=== PATIENT | female | born 1980 | race Two or more races ===

== ENCOUNTER 2016-12-31 11:46 | Emergency (ER) | payer MEDICAID ==
[~2016-12-31] VITALS: Ht 162.6 cm; Wt 68.5 kg
[2016-12-31 12:47] LABS: Urine Bilirubin Negative (Negative); Urine Blood TRACE /uL (Negative); Urine Color Yellow (Yellow); Urine Glucose Normal (Normal); Urine Ketone Negative (Negative); Urine Mucus FEW (None Seen); Urine Nitrite Negative (Negative); Urine RBC <1 /hpf (0 - 4); Urine Squamous Epithelial Cell FEW /hpf (<5); Urine Urobilinogen Normal (Negative); Urine pH 5.5 (5.0-8.0)
[2016-12-31 13:02] LABS: Basophils # (auto) 0 uL; Basophils % (auto) 0.2 % (0.0-2.0); Eosinophils # (auto) 0.1 uL; Hematocrit 37.9 % (36.0-46.0); Hemoglobin 12.8 g/dL (12.2-16.2); Lymphocytes # (auto) 1.6 uL; Mean Corpuscular Hemoglobin 28.8 pg (28.0-32.0); Mean Corpuscular Hgb Conc. 33.7 g/dL (32.0-36.0); Mean Corpuscular Volume 85.5 fL (80.0-100.0); Mean Platelet Volume 7.1 fL (7.4-10.4); Monocytes # (auto) 0.6 uL; Monocytes % (auto) 5.4 % (0.0-12.0); Neutrophils % (auto) 79.4 % (37.0-80.0); Platelet Count (auto) 326 10^3/uL (140-450); Red Cell Distribution Width 13.7 % (11.6-16.0); White Blood Cell 11.3 10^3/uL (4.4-10.8)
[2016-12-31 13:10] LABS: Albumin 3.8 g/dL (3.4-5.0); BUN/Creatinine Ratio 34.7; Bilirubin, Total 0.1 mg/dL (0.2-1.0); Calcium 8.9 mg/dL (8.5-10.1); Potassium 3.6 mmol/L (3.5-5.1); Total Protein 7.4 g/dL (6.4-8.2)
[2016-12-31 16:39] VITALS: BP 110/70
== END 2016-12-31 17:01 | disposition home or self-care (01) ==
LOC: ER 11:46
DX: O20.8 Other hemorrhage in early pregnancy (principal); Z3A.01 Less than 8 weeks gestation of pregnancy
CPT/HCPCS: 36415; 76801; 80053; 81001; 84702; 85025

== ENCOUNTER 2017-06-24 11:00 | Observation (INO) | payer MEDICAID ==
[2017-06-24] MEDS ORDERED: D5W/LACTATED RINGERS 1,000 ML IV SCH (11:34)
== END 2017-06-24 13:30 | disposition home or self-care (01) | DRG 566 ==
LOC: LDRP 11:00
PROVIDERS: ADMIT Obstetrics & Gynecology; ATTEND Obstetrics & Gynecology
DX: O26.893 Other specified pregnancy related conditions, third trimester (principal); E86.0 Dehydration; R10.84 Generalized abdominal pain; O21.2 Late vomiting of pregnancy; R19.7 Diarrhea, unspecified; R05 Cough; O09.523 Supervision of elderly multigravida, third trimester; Z3A.29 29 weeks gestation of pregnancy
CPT/HCPCS: 59025; 81002; 96360; 96361; G0378; 96365; 96366

== ENCOUNTER 2017-07-24 19:00 | Observation (INO) | payer MEDICAID ==
[~2017-07-24] VITALS: Ht 33 cm; Wt 0.5 kg
[2017-07-24] MEDS ORDERED: TERBUTALINE SULFATE 1 MG/ML 1ML VIAL SC ONE (19:37)
[2017-07-24] MEDS ORDERED: TERBUTALINE SULFATE 1 MG/ML 1ML VIAL SC SCH (19:39)
[2017-07-24] MEDS ORDERED: LACTATED RINGER'S 1,000 ML IV ONE (19:51)
[2017-07-24] MEDS ORDERED: LACTATED RINGER'S 1,000 ML IV SCH (19:51)
[2017-07-24 20:18] LABS: Urine Bilirubin Negative (Negative); Urine Blood Negative /uL (Negative); Urine Ca Oxalate Crystal MOD (None Seen); Urine Color Yellow (Yellow); Urine Glucose Normal (Normal); Urine Hyaline Cast FEW /lpf (0 - 2); Urine Ketone TRACE (Negative); Urine Mucus FEW (None Seen); Urine Nitrite Negative (Negative); Urine RBC 1 /hpf (0 - 4); Urine Squamous Epithelial Cell FEW /hpf (<5); Urine Urobilinogen Normal (Negative)
[2017-07-24] MEDS ORDERED: PREN-153 OR (21:44)
[2017-07-31] MEDS ORDERED: NIF10C PO (02:52)
== END 2017-07-24 21:26 | disposition home or self-care (01) | DRG 566 ==
LOC: LDRP 19:00
PROVIDERS: ADMIT Obstetrics & Gynecology; ATTEND Obstetrics & Gynecology
DX: O62.9 Abnormality of forces of labor, unspecified (principal); Z87.891 Personal history of nicotine dependence; Z3A.34 34 weeks gestation of pregnancy
CPT/HCPCS: 59025; 76815; 81001; 81002; 82962; 96360; 96372; G0378; J3105; 96365; 96366

== ENCOUNTER 2017-07-26 18:40 | Observation (INO) | payer MEDICAID ==
[~2017-07-26 18:40] MED LIST: PREN-153 OR
[2017-07-26] MEDS ORDERED: LACTATED RINGER'S 1,000 ML IV SCH (19:44)
[2017-07-26] MEDS ORDERED: LACTATED RINGER'S 1,000 ML IV ONE (19:44)
[2017-07-26] MEDS ORDERED: NIFEdipine 10 MG CAP PO ONE ×2 (19:45→21:15)
[2017-07-26] MEDS ORDERED: NIFEdipine 10 MG CAP ONE (20:54)
[2017-07-31] MEDS ORDERED: NIF10C PO (02:52)
== END 2017-07-26 22:25 | disposition home or self-care (01) | DRG 563 ==
LOC: LDRP 18:40
PROVIDERS: ADMIT Specialist; ATTEND Specialist
DX: O60.03 Preterm labor without delivery, third trimester (principal); O26.893 Other specified pregnancy related conditions, third trimester; O62.9 Abnormality of forces of labor, unspecified; R10.9 Unspecified abdominal pain; Z3A.34 34 weeks gestation of pregnancy
CPT/HCPCS: 59025; 81002; 96360; 96361; G0378; 96365; 96366

== ENCOUNTER 2017-07-30 20:10 | Observation (INO) | payer MEDICAID ==
[2017-07-30] MEDS ORDERED: BETAMETHASONE ACET (6MG/ML) 5ML VIAL IM ONE (20:30)
[2017-07-30] MEDS ORDERED: NIFEdipine 10 MG CAP ONE (20:34)
[2017-07-30] MEDS ORDERED: TERBUTALINE SULFATE 1 MG/ML 1ML VIAL SC ONE (21:05)
[2017-07-30] MEDS ORDERED: TERBUTALINE SULFATE 1 MG/ML 1ML VIAL SC SCH (21:10)
[2017-07-31] MEDS ORDERED: NIF10C PO (02:52)
== END 2017-07-30 22:10 | disposition home or self-care (01) | DRG 566 ==
LOC: LDRP 20:10
PROVIDERS: ADMIT Specialist; ATTEND Specialist
DX: O62.9 Abnormality of forces of labor, unspecified (principal); Z3A.34 34 weeks gestation of pregnancy
CPT/HCPCS: 59025; 81002; 96372; G0378; J0702; J3105

== ENCOUNTER 2017-07-31 20:30 | Observation (INO) | payer MEDICAID ==
[~2017-07-31 20:30] MED LIST changes: +NIF10C PO
== END 2017-07-31 21:53 | disposition home or self-care (01) | DRG 566 ==
LOC: LDRP 20:30
PROVIDERS: ADMIT Obstetrics & Gynecology; ATTEND Obstetrics & Gynecology
DX: O24.419 Gestational diabetes mellitus in pregnancy, unspecified control (principal); Z3A.34 34 weeks gestation of pregnancy
CPT/HCPCS: 59025; 81002; G0378; 96372

== ENCOUNTER 2017-08-10 22:39 | Observation (INO) | payer MEDICAID ==
[~2017-08-10] VITALS: Ht 30.5 cm; Wt 0.5 kg
[2017-08-10] MEDS ORDERED: TERBUTALINE SULFATE 1 MG/ML 1ML VIAL SC ONE (23:32)
[2017-08-11] MEDS ORDERED: LACTATED RINGER'S 1,000 ML IV SCH (07:00)
[2017-08-11] MEDS ORDERED: TERBUTALINE SULFATE 1 MG/ML 1ML VIAL SC ONE (10:00)
[2017-08-11] MEDS ORDERED: NIFEdipine 10 MG CAP PO SCH (12:00)
== END 2017-08-11 08:35 | disposition home or self-care (01) | DRG 566 ==
LOC: LDRP 22:39
PROVIDERS: ADMIT Specialist; ATTEND Specialist
DX: O62.9 Abnormality of forces of labor, unspecified (principal); O60.03 Preterm labor without delivery, third trimester; Z3A.36 36 weeks gestation of pregnancy
CPT/HCPCS: 59025; 81002; 82948; 82962; 94762; 96372; G0378; J3105; 96360; 96365; 96366